=== PATIENT | female | born 2000 | race Caucasian/White ===

== ENCOUNTER 2021-03-10 10:27 | Emergency (ER) | payer OTHER ==
[~2021-03-10] VITALS: Ht 165.1 cm; Wt 61.2 kg
[2021-03-10] MEDS ORDERED: DEXAMETHASONE SOD PHOSPHATE 10 MG/ML VIAL ONE (11:29)
[2021-03-10] MEDS ORDERED: IV NS 0.9% 1,000 ML IV ONE (11:30)
[2021-03-10] MEDS ORDERED: FAMOTIDINE/PF INJ 20 MG/2 ML VIAL IV ONE ×2 (11:30)
[2021-03-10] MEDS ORDERED: DEXAMETHASONE SOD PHOSPHATE 10 MG/ML VIAL IV ONE (11:30)
[2021-03-10 11:35] LABS: BASOPHILS % (AUTO) 0.3 % (0.0-2.0); EOSINOPHILS % (AUTO) 0.3 % (0.0-6.0); HEMATOCRIT 41 % (33-45); HEMOGLOBIN 13.8 g/dL (11.5-14.8); LYMPHOCYTES # (AUTO) 1.1 /CMM (0.8-4.8); LYMPHOCYTES % (AUTO) 10.6 % (20.0-44.0); MEAN CORPUSCULAR HGB CONC 34 g/dl (31.0-36.0); MEAN CORPUSCULAR VOLUME 96 fL (82-100); MONOCYTES # (AUTO) 0.7 /CMM (0.1-1.30); NEUTROPHILS # (AUTO) 8.4 /CMM (1.8-8.9); NEUTROPHILS % (AUTO) 81.8 % (43.0-81.0); PLATELET COUNT (AUTO) 259 /CMM (150-450); RED BLOOD CELL COUNT(AUTO) 4.23 MIL/uL (4.0-5.2); WHITE BLOOD COUNT (AUTO) 10.2 K/uL (4.3-11.0)
--- NOTE | 2021-03-10 11:42 | NUR ---
BIB SELF C/O GEN RASH STARTED 4 DAYS AGO, SEEN AT [facility] 2 DAYS AGO STEROIDS GIVEN. PT AAOX4, VSS. RR EVEN & UNLABORED. DENIES CP, SOB, DIZZINESS, N/V AT THIS TIME. PT SEEN & EVAL'D BY DR. MOORE. WILL CONT TO MONITOR.
[2021-03-10] MEDS ORDERED: BETA30LO2 TP (11:53)
[2021-03-10] MEDS ORDERED: METH4TAB3 PO (11:53)
[2021-03-10] MEDS ORDERED: FAMO-131 PO (11:53)
[2021-03-10 11:54] LABS: ALBUMIN 4.4 g/dL (3.4-5.0); BILIRUBIN,DIRECT 0.1 mg/dL (0.0-0.2); BILIRUBIN,TOTAL 0.2 mg/dL (0.2-1.0); CALCIUM, SERUM 9.3 mg/dL (8.5-10.1); CREATININE 0.8 mg/dL (0.6-1.3); POTASSIUM 3.4 mmol/L (3.5-5.1); TOTAL PROTEIN, SERUM 7.4 g/dL (6.4-8.2)
[2021-03-10 13:21] VITALS: BP 124/76
--- NOTE | 2021-03-10 13:21 | NUR ---
Patient discharged to home in stable condition. Written and verbal after care instructions given. Patient verbalizes understanding of instruction. IV removed. Catheter intact and site benign. Pressure and 4x4 applied to site. No bleeding noted.
== END 2021-03-10 13:22 | disposition home or self-care (01) ==
LOC: ER 10:36
DX: R21 Rash and other nonspecific skin eruption (principal); Z79.899 Other long term (current) drug therapy
CPT/HCPCS: 36415; 80048; 80076; 85025; 96361; 96374; 96375; 99284; J1100; J3490; J7030

== ENCOUNTER 2021-08-29 14:04 | Emergency (ER) | payer OTHER ==
[~2021-08-29] VITALS: Ht 165.1 cm; Wt 63.5 kg
[~2021-08-29 14:04] MED LIST: BETA30LO2 TP; FAMO-131 PO; METH4TAB3 PO
--- NOTE | 2021-08-29 15:21 | NUR ---
upper back and next pain x 7 days, worst in the last 2 days
[2021-08-29] MEDS ORDERED: CYCL10TA9 PO (15:37)
[2021-08-29] MEDS ORDERED: IBUP-1955 PO (15:37)
[2021-08-29] MEDS ORDERED: DEXAMETHASONE SOD PHOSPHATE 10 MG/ML VIAL ONE (16:18)
[2021-08-29] MEDS ORDERED: KETOROLAC TROMETHAMINE INJ 60 MG/2 ML VIAL IM ONE (16:18)
[2021-08-29] MEDS: DEXAMETHASONE SOD PHOSPHATE 4 MG/ML VIAL IM ONE (16:24)
[2021-08-29] MEDS: KETOROLAC TROMETHAMINE INJ 60 MG/2 ML VIAL IM ONE (17:06)
--- NOTE | 2021-08-29 17:12 | NUR ---
Patient discharged to home in stable condition. Written and verbal after care instructions given. Patient verbalizes understanding of instruction.
[2021-08-29 17:14] VITALS: BP 103/71
== END 2021-08-29 17:15 | disposition home or self-care (01) ==
LOC: ER 15:18
DX: M62.830 Muscle spasm of back (principal); M54.2 Cervicalgia; M54.6 Pain in thoracic spine; Z79.899 Other long term (current) drug therapy
CPT/HCPCS: 84703; 96372 ×2; 99284; J1100; J1885

== ENCOUNTER 2024-10-01 15:54 | Emergency (ER) | payer OTHER ==
[~2024-10-01] VITALS: Ht 165.1 cm; Wt 61.2 kg
[~2024-10-01 15:54] MED LIST changes: +CYCL10TA9 PO; +IBUP-1955 PO
[2024-10-01] MEDS ORDERED: ONDANSETRON HCL/PF 4 MG/2 ML VIAL ONE (17:06)
[2024-10-01] MEDS: IV NS 0.9% 1,000 ML BAG IV ONE (17:11)
[2024-10-01] MEDS: ONDANSETRON HCL/PF 4 MG/2 ML VIAL IVP ONE (17:11)
[2024-10-01 17:19] LABS: BASOPHILS % (AUTO) 0.4 % (0.0-2.0); EOSINOPHILS % (AUTO) 0.2 % (0.0-6.0); HEMATOCRIT 39 % (33-45); HEMOGLOBIN 13.3 g/dL (11.5-14.8); LYMPHOCYTES # (AUTO) 0.4 K/uL (0.8-4.8); LYMPHOCYTES % (AUTO) 4.8 % (20.0-44.0); MEAN CORPUSCULAR HEMOGLOBIN 31 PG (26.0-33.0); MEAN CORPUSCULAR HGB CONC 34 g/dl (31.0-36.0); MEAN CORPUSCULAR VOLUME 92 fL (82-100); MONOCYTES # (AUTO) 0.5 K/uL (0.1-1.30); MONOCYTES % (AUTO) 6.8 % (2.0-12.0); NEUTROPHILS % (AUTO) 87.8 % (43.0-81.0); PLATELET COUNT (AUTO) 245 K/uL (150-450); RED BLOOD CELL COUNT(AUTO) 4.22 MIL/uL (4.0-5.2); RED CELL DISTRIBUTION WIDTH 13.2 % (11.5-15.0)
[2024-10-01 17:40] LABS: CALCIUM, SERUM 8.7 mg/dL (8.5-10.1); CREATININE 0.8 mg/dL (0.6-1.3); POTASSIUM 3.7 mmol/L (3.5-5.1)
[2024-10-01 17:48] LABS: BILIRUBIN,DIRECT 0.2 mg/dL (0.0-0.2)
[2024-10-01 18:07] LABS: BILIRUBIN,TOTAL 0.6 mg/dL (0.2-1.0)
[2024-10-01 18:13] LABS: APPEARANCE,URINE CLEAR (CLEAR); BILIRUBIN,URINE NEGATIVE (NEGATIVE); BLOOD, URINE NEGATIVE Ery/uL (NEGATIVE); COLOR,URINE YELLOW (YELLOW); KETONES,URINE 1+ mg/dL (NEGATIVE); LEUKOCYTE ESTERASE ,URINE NEGATIVE (NEGATIVE); NITRITE, URINE NEGATIVE (NEGATIVE); PREGNANCY TEST URINE QUAL NEGATIVE (NEGATIVE); PROTEIN,URINE 1+ mg/dl (NEGATIVE); UGLUCOSE NEGATIVE (NEGATIVE)
[2024-10-01] MEDS ORDERED: ONDA4TAB5 PO (18:44)
[2024-10-01 18:51] VITALS: BP 105/66; TEMP 98; O2SAT 99
[2024-10-01 19:08] LABS: ADD URINE CULTURE NO; BACTERIA,URINE 1+ /HPF (None Seen); RBC,URINE 0-2 /HPF (0-2); WBC,URINE 0-2 /HPF (0-3)
== END 2024-10-01 18:51 | disposition home or self-care (01) ==
LOC: ER 15:57
DX: R11.2 Nausea with vomiting, unspecified (principal); B34.9 Viral infection, unspecified; R51.9 Headache, unspecified; M79.10 Myalgia, unspecified site; Z20.822 Contact with and (suspected) exposure to COVID-19
CPT/HCPCS: 99283; 96374; 96361; 87426; 85025; 80048; 83690; 80076; 84703; 81001; 36415; J2405; J7030